=== PATIENT | male | born 1965 | race Caucasian/White ===

== ENCOUNTER 2017-04-03 17:39 | Emergency (ER) | payer MEDICAID ==
[2017-04-03 19:02] LABS: % BASOPHILS 1.2 % (0.0-2.0); % LYMPHOCYTES 32.6 % (20.0-50.0); % MONOCYTES 6.3 % (2.0-10.0); % NEUTROPHILS 57.9 % (40.0-80.0); HEMATOCRIT 38.7 % (39.0-49.0); HEMOGLOBIN 13.3 gm/dL (13.2-17.3); MEAN CORPUSCULAR HEMOGLOBIN 33.3 pg (26.0-30.0); MEAN CORPUSCULAR HGB CONC 34.4 pg (28.0-36.0); MEAN PLATELET VOLUME 7.9 fl; NEUTROPHILE ABSOLUTE 2.7 Th/cmm (1.8-8.0); PLATELET COUNT 195 Th/cmm (150-400); RED BLOOD COUNT 3.99 Mil/cmm (4.30-5.70); RED CELL DISTRIBUTION WIDTH 13.1 % (11.5-20.0); WHITE BLOOD COUNT 4.8 Th/cmm (4.8-10.8)
--- NOTE | 2017-04-03 19:02 | ED Physician Chart ---
Chief Complaint/HPI - Patient Information Date Seen:: 04/03/17 Time Seen:: 18:00 Chief Complaint:: ALOC History of Present Illness:: pt deveopled ALOC after admiting to alcohol consumption today; pt's last ETOH beverage was about 6 hours [employer]; Denies C/P, SOB, Abd pain, A/N/V/D/C, fever, chills, cough, congestion, LOC, weakness, paresthesias, vertigo, dizziness Allergies:: Allergies Allergy/AdvReac Type Severity Reaction Status Date / Time No Known Allergies Allergy Verified 04/03/17 17:55 Vitals:: Vital Signs - 8 hr 04/03/17 17:56 Temp 98.1 F HR 70 RR 16 BP 130/59 O2 Sat % 98 Historian:: Patient, EMS Review:: Nurse's Note Reviewed, EMS run form Reviewed <Barrington Sears - Last Filed: 04/03/17 19:45> - Patient Information Allergies:: Allergies Allergy/AdvReac Type Severity Reaction Status Date / Time No Known Allergies Allergy Verified 04/03/17 17:55 Vitals:: Vital Signs - 8 hr 04/03/17 17:56 Temp 98.1 F HR 70 RR 16 BP 130/59 O2 Sat % 98 <Mickey Brand - Last Filed: 04/03/17 20:34> Review of Systems - Review of Systems General/Constitutional: Fever, Chills, No weight loss, Weakness, No diaphoresis , No edema, No loss of appetite Skin: No skin lesions, Rash, No bruising Head: Headache, No light-headedness Eyes: No loss of vision, No pain, No diplopia ENT: No earache, Nasal drainage, No sore throat, No tinnitus Neck: No neck pain, No swelling, No thyromegaly, No stiffness, No mass noted Cardio Vascular: Chest pain, Palpitations, No PND, No orthopnea, No edema Pulmonary: No SOB, Cough, No sputum, No wheezing GI: Nausea, Vomiting, Diarrhea, No pain, No melena, No hematochezia, No constipation, No hematemesis G/U: No dysuria, No frequency, No hematuria Musculoskeletal: No bone or joint pain, No back pain, No muscle pain Endocrine: No polyuria, No polydipsia Psychiatric: No prior psych history, No depression, No anxiety, No suicidal ideation Hematopoietic: No bruising, No lymphadenopathy Allergic/Immuno: No urticaria, No angioedema Neurological: No syncope, No focal symptoms, Weakness, No paresthesia, Headache , No seizure, Dizziness, No confusion, No vertigo <Barrington Sears - Last Filed: 04/03/17 19:45> Past Medical History - Past Medical History Past Medical History: HTN, DM, CAD, Dyslipidemia, PUD/GERD Family History: Heart disease, Diabetes Melitus, HTN Social History: Smoker, Alcohol, No Drug Use, Single Surgical History: None Psychiatricy History: None Medication: Reviewed <Barrington Sears - Last Filed: 04/03/17 19:45> Physical Exam - Physical Examination General/Constitutional: Awake, Well-developed, well-nourished, Alert, No distress, GCS 15, Non-toxic appearing, Ambulatory Head: Atraumatic Eyes: Lids, conjuctiva normal, PERRL, EOMI Skin: Nl inspection, No rash, No skin lesions, No ecchymosis, Well hydrated, No lymphadenopathy ENMT: External ears, nose nl, Nasal exam nl, Lips, teeth, gums nl Neck: Nontender, Full ROM w/o pain, No JVD, No nuchal rigidity, No bruit, No mass, No stridor Respiratory: Nl effort/Exclusion, Clear to Auscultation, No Wheeze/Rhonchi/Rales Cardio Vascular: RRR, No murmur, gallop, rubs, NL S1 S2 GI: No tenderness/rebounding/guarding, No organomegaly, No hernia, Normal BS's, Nondistended, No mass/bruits, No McBurney tenderness : No CVA tenderness Extremities: No tenderness or effusion, Full ROM, normal strength in all extremities, No edema, Normal digits & nails Neuro/Psych: Alert/oriented, DTR's symmetric, Normal sensory exam, Normal motor strength, Judgement/insight normal, Mood normal, Normal gait, No focal deficits Misc: normal gait, Normal back, No paraspinal tenderness <Barrington Sears - Last Filed: 04/03/17 19:45> Labs/Radiology/EKG Results - Lab Results Results: Laboratory Tests 04/03/17 17:47 POC Glucose 76 Comments:: ETOH: 398 - EKG Interpretations EKG Time:: 19:06 Rate & Rhythm: NSR; Comments:: ILBBB; non-specific st-t changes <Barrington Sears - Last Filed: 04/03/17 19:45> - Lab Results Results: Laboratory Tests 04/03/17 04/03/17 04/03/17 17:47 18:52 18:52 WBC 4.8 RBC 3.99 L Hgb 13.3 Hct 38.7 L MCV 97.0 MCH 33.3 H MCHC Differential 34.4 RDW 13.1 Plt Count 195 MPV 7.9 Neutrophils % 57.9 Lymphocytes % 32.6 Monocytes % 6.3 Eosinophils % 2.0 Basophils % 1.2 Sodium 139 Potassium 3.6 Chloride 106 Carbon Dioxide 26.2 Anion Gap 10.4 BUN 23 Creatinine 1.5 H Est GFR ( Amer) > 60.0 Est GFR (Non-Af Amer) 52.2 BUN/Creatinine Ratio 15.3 Glucose 148 H POC Glucose 76 Whole Bld Lactic Acid Calcium 9.3 Total Bilirubin 0.4 AST 38 ALT 30 Alkaline Phosphatase 41 Ammonia Troponin I Total Protein 7.1 Albumin 4.2 Globulin 2.9 Albumin/Globulin Ratio 1.5 Ethyl Alcohol Serum Ketones 04/03/17 04/03/17 04/03/17 18:52 18:52 18:52 WBC RBC Hgb Hct MCV MCH MCHC Differential RDW Plt Count MPV Neutrophils % Lymphocytes % Monocytes % Eosinophils % Basophils % Sodium Potassium Chloride Carbon Dioxide Anion Gap BUN Creatinine Est GFR ( Amer) Est GFR (Non-Af Amer) BUN/Creatinine Ratio Glucose POC Glucose Whole Bld Lactic Acid 2.48 H* Calcium Total Bilirubin AST ALT Alkaline Phosphatase Ammonia Troponin I 0.01 Total Protein Albumin Globulin Albumin/Globulin Ratio Ethyl Alcohol 398 H Serum Ketones NEGATIVE 04/03/17 19:16 WBC RBC Hgb Hct MCV MCH MCHC Differential RDW Plt Count MPV Neutrophils % Lymphocytes % Monocytes % Eosinophils % Basophils % Sodium Potassium Chloride Carbon Dioxide Anion Gap BUN Creatinine Est GFR ( Amer) Est GFR (Non-Af Amer) BUN/Creatinine Ratio Glucose POC Glucose Whole Bld Lactic Acid Calcium Total Bilirubin AST ALT Alkaline Phosphatase Ammonia 26 Troponin I Total Protein Albumin Globulin Albumin/Globulin Ratio Ethyl Alcohol Serum Ketones - Radiology Results Results: CT head without contrast per radiology NAD - EKG Interpretations Comments:: 12-lead EKG Interpretation by Lilly Brand MD: Normal Sinus Rhythm with ventricular rate of 69 beats per minute Normal axis Incomplete left lower bundle branch block No acute ST or T wave changes. No obvious STEMI <Mickey Brand - Last Filed: 04/03/17 20:34> ED Septic Shock - . Is Septic Shock (SBP<90, OR Lactate>4 mmol\L) present?: No - <6hrs of presentation: Vital Signs: Vital Signs - 8 hr 04/03/17 17:56 Temp 98.1 F HR 70 RR 16 BP 130/59 O2 Sat % 98 <Barrington Sears - Last Filed: 04/03/17 19:45> - . Is Septic Shock (SBP<90, OR Lactate>4 mmol\L) present?: No - <6hrs of presentation: Vital Signs: Vital Signs - 8 hr 04/03/17 17:56 Temp 98.1 F HR 70 RR 16 BP 130/59 O2 Sat % 98 <Mickey Brand - Last Filed: 04/03/17 20:34> Reassessment (Disposition) - Reassessment Reassessment:: Patient handed off to me at change of shift. Blood alcohol was noted to be upper 300s. However patient is alert and oriented. He is able to ambulate without any gait abnormality. Lactic acid levels elevated however due to chronic alcohol abuse. Patient is eating. Patient receiving IV banana bag. Patient wishes to be discharged. Ambulating abnormality. Alert and oriented. Recommend follow up PCP or free clinic 1-2 days. Return to ER precautions given. Patient does understand and agrees the plan. Blood pressure was noted to be elevated over 120/80. There were no signs of hypertension. Discussed the findings with the patient and recommended that the patient follow up with the primary care physician regarding the elevated blood pressure. Reassessment Condition:: Improved - Diagnosis Diagnosis:: Acute alcohol intoxication - Aftercare/Follow up Instructions Aftercare/Follow-Up Instructions:: Counseled pt regarding lab results/diagnosis & need follow up, Refer to Discharge Instructions - Patient Disposition Discharge/Transfer:: Home Time:: 20:33 Condition at Disposition:: Improved <Mickey Brand - Last Filed: 04/03/17 20:34> ED Discharge Plan <Barrington Sears - Last Filed: 04/03/17 19:45> <Mickey Brand - Last Filed: 04/03/17 20:34> - Patient Disposition Admit/Discharge/Transfer: PT DISCHARGED HOME Condition at Disposition: Improved Instructions: Alcohol Intoxication, [id number]
[2017-04-03 19:19] LABS: ALB/GLOB RATIO 1.5 (1.0-1.8); ALKALINE PHOSPHATASE 41 U/L (34-104); ANION GAP 10.4 (7.0-16.0); BILIRUBIN,TOTAL 0.4 mg/dL (0.3-1.0); BUN - UREA NITROGEN 23 mg/dL (7-25); BUN/CREATININE RATIO 15.3; CALCIUM SERUM 9.3 mg/dL (8.6-10.3); CARBON DIOXIDE 26.2 mEq/L (21.0-31.0); CHLORIDE 106 mEq/L (98-107); CREATININE - SERUM 1.5 mg/dL (0.7-1.3); GLUCOSE 148 mg/dL (70-105); POTASSIUM SERUM 3.6 mEq/L (3.5-5.1); SGOT 38 U/L (13-39); SGPT/ALT 30 U/L (7-52); SODIUM SERUM 139 mEq/L (136-145)
[2017-04-03] MEDS ORDERED: Multivitamin Inj 10 ML, Thiamine HCL 100 MG, Magnesium Sulfate 2 GM, Folic Acid 1 MG in... IV ONE (19:40)
[2017-04-03] MEDS ORDERED: Multivitamin Inj 10 mL Vial IV ONE (19:41)
[2017-04-03] MEDS ORDERED: Thiamine 100 mg/mL 2mL Vial ONE (19:42)
[2017-04-03] MEDS ORDERED: Magnesium Sulfate 1 gm/2 mL 2mL Vial IV ONE (19:44)
[2017-04-03 20:59] LABS: AMPHETAMINE URINE NEGATIVE (NEGATIVE); BARBITURATES URINE NEGATIVE (NEGATIVE); METHADONE URINE NEGATIVE (NEGATIVE)
--- NOTE | 2017-04-05 09:39 | Diagnostic Imaging Report ---
CT scan of the brain without intravenous contrast HISTORY: Stroke, CVA Total DLP equals 610 CTDI equals 33.6 Axial sections were obtained from the base the skull the vertex. There is a normal ventricular system size. There is prominence of cerebral sulci and subarachnoid cisterns reflecting atrophy. Hypodensity seen through the supratentorial white matter regions without mass effect. The findings may be associated with chronic small vessel ischemic disease. A small hypodense focus is noted in the right temporoparietal region. This may represent a prominent perivascular space or old lacunar infarct. No acute intracerebral hemorrhage. Again, no mass effect or shift of midline structures. No extra-axial masses or abnormal fluid collections. IMPRESSION: 1. No acute abnormalities or 2. Mild cerebral atrophy 3. Supratentorial white matter changes. The findings may be associated with chronic small vessel ischemic disease 4. Small focus within the right temporal parietal region that may be related to a prominent perivascular space or old lacunar infarct
== END 2017-04-03 23:30 | disposition home or self-care (01) ==
LOC: ER 17:39
DX: F10.129 Alcohol abuse with intoxication, unspecified (principal); I10 Essential (primary) hypertension; E11.9 Type 2 diabetes mellitus without complications; I25.10 Atherosclerotic heart disease of native coronary artery without angina pectoris; E78.5 Hyperlipidemia, unspecified; K21.9 Gastro-esophageal reflux disease without esophagitis; F17.200 Nicotine dependence, unspecified, uncomplicated
CPT/HCPCS: 36415-UA; 70450-TC; 80053-TC; 80307; 80320-TC; 82010-TC; 82140-TC; 82948-90; 83605; 84484-TC; 85025-TC; 93005; J3411; J3475; J7030; X6226; X6598